=== PATIENT | female | born 1955 | race African-American/Black ===

== ENCOUNTER → 2018-05-25 | Outpatient (CLI) | payer OTHER | END | disposition home or self-care (01) | LOC: KCIC 11:12 | DX: M47.896 Other spondylosis, lumbar region (principal) | CPT/HCPCS: 72100 ==

== ENCOUNTER → 2018-06-10 | Outpatient (CLI) | payer OTHER ==
[2018-06-10 12:01] LABS: ADD MAN DIFF? NO; BASO # 0.1 x10^3/uL (0.0-0.2); BASO % 0 % (0-3); EOS # 0.1 x10^3/uL (0.0-0.7); EOS % 1 % (0-3); HEMATOCRIT 37.4 % (36.0-47.0); HEMOGLOBIN 12.6 g/dL (12.0-15.5); LYMPH # 3.9 x10^3/uL (1.0-4.8); LYMPH % 30 % (24-48); MEAN CORPUSCULAR HEMOGLOBIN 33 pg (25-35); MEAN CORPUSCULAR HGB CONC 34 g/dL (31-37); MEAN CORPUSCULAR VOLUME 99 fL (79-100); MONO # 0.8 x10^3/uL (0.0-1.1); MONO % 6 % (0-9); NEUT % 62 % (31-73); PLATELET COUNT 305 x10^3/uL (140-400); RED BLOOD COUNT 3.78 x10^6/uL (3.50-5.40); RED CELL DISTRIBUTION WIDTH 15.5 % (11.5-14.5); WHITE BLOOD COUNT 12.8 x10^3/uL (4.0-11.0)
[2018-06-10 12:22] LABS: ALBUMIN 3.8 g/dL (3.4-5.0); ALBUMIN/GLOBULIN RATIO 1.1 (1.0-1.7); ALK PHOS 66 U/L (46-116); ALT (SGPT) 27 U/L (14-59); ANION GAP 11 (6-14); AST (SGOT) 16 U/L (15-37); BLOOD UREA NITROGEN 16 mg/dL (7-20); BUN/CREATININE RATIO 16 (6-20); CALCIUM 9.8 mg/dL (8.5-10.1); CARBON DIOXIDE 24 mmol/L (21-32); CHLORIDE 108 mmol/L (98-107); GFR 67.5; GLUCOSE 108 mg/dL (70-99); POTASSIUM 3.9 mmol/L (3.5-5.1); SODIUM 143 mmol/L (136-145); TOTAL BILIRUBIN 0.3 mg/dL (0.2-1.0); TOTAL PROTEIN 7.2 g/dL (6.4-8.2)
[2018-06-10 20:18] LABS: MRSA BY PCR Negative (Negative)
[2018-06-11 00:12] LABS: HEMOGLOBIN A1C 5.3 % (4.8-5.6)
== END | disposition home or self-care (01) ==
LOC: SURGPAT 10:48
DX: Z01.818 Encounter for other preprocedural examination (principal); M48.062 Spinal stenosis, lumbar region with neurogenic claudication; M54.16 Radiculopathy, lumbar region
CPT/HCPCS: 36415; 80053; 83036; 85025; 87641

== ENCOUNTER 2018-06-18 07:00 | Observation (INO) | payer OTHER ==
[~2018-06-18 07:00] MED LIST: LIDOCAINE 1% PF 2 ML VIAL. ID; ONDANSETRON PF 4 MG/2 ML VIAL. IV; PROCHLORPERAZINE 10 MG/2 ML VIAL. IV; fentaNYL PF VIAL 100 MCG/2 ML VIAL IV
[2018-06-18] MEDS: IV RINGERS,LACTATED 1000ML 1,000 ML IV (07:00)
[2018-06-18 07:32] LABS: POC GLUCOSE 124 mg/dL (70-99)
[2018-06-18] MEDS ORDERED: fentaNYL PF VIAL 100 MCG/2 ML VIAL ×2 (08:12→11:36)
[2018-06-18] MEDS ORDERED: ROCURONIUM 50 MG/5 ML VIAL. (08:13)
[2018-06-18] MEDS ORDERED: REMIFENTANIL 1 MG VIAL. IV (08:13)
[2018-06-18] MEDS ORDERED: SEVOFLURANE 61 TO 120 MINUTES. IH (08:14)
[2018-06-18] MEDS ORDERED: DEXAMETHASONE SOD PHOS 20 MG/5 ML VIAL. (08:14)
[2018-06-18] MEDS ORDERED: PROPOFOL 20 ML IV (08:14)
[2018-06-18] MEDS ORDERED: ONDANSETRON PF 4 MG/2 ML VIAL. (08:15)
[2018-06-18] MEDS ORDERED: PROPOFOL 50 ML IV ×2 (08:15→09:52)
[2018-06-18] MEDS ORDERED: KETOROLAC 30 MG/ML INJ FOR OR. INJ (08:15)
[2018-06-18] MEDS ORDERED: PHENYLEPHRINE 10 MG/ML VIAL. ×2 (08:15)
[2018-06-18] MEDS: BUPIVAC MPF-EPI 0.5%-1:200000 30 ML VIAL. INJ (09:39)
[2018-06-18] MEDS: KETOROLAC 60 MG/2 ML INJ FOR OR. (09:39)
[2018-06-18] MEDS: GELATIN SPONGE SIZE 100. (09:39)
[2018-06-18] MEDS: THROMBIN TOPICAL 20,000 UNIT SPRAY.SYRN KIT TP (09:39)
[2018-06-18] MEDS ORDERED: NEOSTIGMINE METHYLSULFATE 5 MG/5 ML SYRINGE. (11:05)
[2018-06-18] MEDS ORDERED: GLYCOPYRROLATE 1 MG/5 ML VIAL. (11:06)
[2018-06-18] MEDS ORDERED: diphenhydrAMINE HCL 25 MG CAPSULE PO (11:45)
[2018-06-18] MEDS ORDERED: NON FORMULARY ITEM (Albuterol Sulfate (Proair Hfa Inhaler) 2 PUFF) INH (11:45)
[2018-06-18] MEDS ORDERED: diphenhydrAMINE 50 MG/ML VIAL IV (11:45)
[2018-06-18] MEDS ORDERED: 0.9 % SODIUM CHLORIDE 10 ML DISP.SYRIN. IV (11:45)
[2018-06-18] MEDS ORDERED: MAGNESIUM HYDROXIDE 2,400 MG/30 ML ORAL.SUSP. PO (11:45)
[2018-06-18] MEDS ORDERED: MAG HYDROX/ALUMINUM HYD/SIMETH 30 ML ORAL.SUSP PO (11:45)
[2018-06-18] MEDS ORDERED: HYDROcodone/APAP 5/325MG 1 TAB TABLET PO (11:45)
[2018-06-18] MEDS ORDERED: fentaNYL PF VIAL 100 MCG/2 ML VIAL IV (11:45)
[2018-06-18] MEDS ORDERED: ACETAMINOPHEN 325 MG TABLET. PO (11:45)
[2018-06-18] MEDS ORDERED: CALCIUM CARBONATE 500 MG TAB.CHEW PO (11:45)
[2018-06-18] MEDS ORDERED: MORPHINE SULFATE 2 MG/ML DISP.SYRIN. (11:50)
[2018-06-18] MEDS: fentaNYL PF VIAL 100 MCG/2 ML VIAL IV ×5 (11:55→13:27)
[2018-06-18] MEDS: MORPHINE SULFATE 2 MG/ML DISP.SYRIN. IV ×2 (11:56→12:10)
[2018-06-18 12:19] LABS: POC GLUCOSE 157 mg/dL (70-99)
[2018-06-18] MEDS ORDERED: IBUPROFEN 800 MG TABLET. PO (12:45)
[2018-06-18] MEDS ORDERED: ALBUTEROL SULFATE 2.5 MG/3 ML NEBU. NEB (13:00)
[2018-06-18] MEDS: buPROPion XL 150 MG TAB.ER.24H. PO (13:00)
[2018-06-18] MEDS ORDERED: ZOLPIDEM 5 MG TABLET. PO (13:15)
[2018-06-18] MEDS: POTASSIUM CL 20MEQ D5-0.45NACL 1,000 ML IV (13:24)
[2018-06-18] MEDS: CYCLOBENZAPRINE 10 MG TABLET. PO ×2 (14:00→21:30)
[2018-06-18] MEDS: DULoxetine HCL 30 MG CAPSULE.DR PO (14:48)
[2018-06-18] MEDS: LOSARTAN POTASSIUM 50 MG TABLET. PO (14:48)
[2018-06-18 16:34] LABS: POC GLUCOSE 345 mg/dL (70-99)
[2018-06-18] MEDS: CHOLECALCIFEROL (VITAMIN D3) 1,000 UNIT TABLET PO (16:46)
[2018-06-18 20:24] LABS: POC GLUCOSE 173 mg/dL (70-99)
[2018-06-18] MEDS: DICLOFENAC SODIUM 1% TOPICAL GEL 100GM TUBE. TP (21:00)
[2018-06-18] MEDS: DOCUSATE SODIUM 100 MG CAPSULE. PO (21:30)
[2018-06-18] MEDS: ATORVASTATIN CALCIUM 40 MG TABLET. PO (21:30)
[2018-06-18] MEDS: ZOLPIDEM 5 MG TABLET. PO ×2 (21:30→23:45)
[2018-06-18] MEDS: HYDROcodone/APAP 5/325MG 1 TAB TABLET PO (22:43)
[2018-06-19 07:02] LABS: POC GLUCOSE 138 mg/dL (70-99)
[2018-06-19] MEDS: ASPIRIN ENTERIC COATED 81 MG TABLET.DR. PO (08:01)
[2018-06-19] MEDS: DULoxetine HCL 30 MG CAPSULE.DR PO (08:01)
[2018-06-19] MEDS: LOSARTAN POTASSIUM 50 MG TABLET. PO (08:01)
[2018-06-19] MEDS: MULTIVITAMIN with MINERAL TABLET. PO (08:02)
[2018-06-19] MEDS: CYCLOBENZAPRINE 10 MG TABLET. PO (08:02)
[2018-06-19] MEDS: CHOLECALCIFEROL (VITAMIN D3) 1,000 UNIT TABLET PO (08:02)
[2018-06-19] MEDS: buPROPion XL 150 MG TAB.ER.24H. PO (08:02)
[2018-06-19] MEDS: DICLOFENAC SODIUM 1% TOPICAL GEL 100GM TUBE. TP (08:03)
[2018-06-19] MEDS: HYDROcodone/APAP 5/325MG 1 TAB TABLET PO (08:10)
[2018-06-19] MEDS: DOCUSATE SODIUM 100 MG CAPSULE. PO (09:00)
== END 2018-06-19 11:30 | disposition home or self-care (01) ==
LOC: SURG 07:00 → 4 SOUTHEST 12:42
PROVIDERS: Neurological Surgery
DX: M48.062 Spinal stenosis, lumbar region with neurogenic claudication (principal); M43.16 Spondylolisthesis, lumbar region; E11.9 Type 2 diabetes mellitus without complications; M54.16 Radiculopathy, lumbar region; Z82.49 Family history of ischemic heart disease and other diseases of the circulatory system; Z85.42 Personal history of malignant neoplasm of other parts of uterus; Z87.891 Personal history of nicotine dependence
CPT/HCPCS: 63047; 76000; 82962; 88304; 88311; 96374; 97161-GP; A7015; G0378; G0379; J0690; J1100; J1885; J2270; J2405; J2704; J2710; J3010; J3490

== ENCOUNTER → 2018-10-04 | Outpatient (CLI) | payer MEDICARE, OTHER ==
[2018-06-19 10:48] VITALS: BP 160/60
[~2018-10-04] MED LIST changes: +ASPI81TA50 PO; +ATOR40TA59 PO; +BUPR150T6 PO; +CHOL100013 PO; +CYCL5TAB PO; +DICL100G18 TP; +DULO60CA6 PO; +GADOBUTROL 7.5 MMOL/7.5 ML VIAL IV ONE; +HYDR-3164 PO; +IBUP-1060 PO; -LIDOCAINE 1% PF 2 ML VIAL. ID; +METF10007 PO; +MULT1TAB52 PO; -ONDANSETRON PF 4 MG/2 ML VIAL. IV; +PROAIR HFA8.5 GM INH; -PROCHLORPERAZINE 10 MG/2 ML VIAL. IV; +VALS320T2 PO; +ZOLP12.52 PO; -fentaNYL PF VIAL 100 MCG/2 ML VIAL IV
--- NOTE | 2018-10-04 11:31 | KCIC ---
Single lateral view of the lumbar spine Clinical indications: Lumbar stenosis. Lumbar pain and radiculopathy. COMPARISON: May 25, 2018. FINDINGS: Again seen is a grade 1 anterolisthesis of L4-5 and L5-S1 which has not changed significantly. No compression fracture or discitis or osteolytic process is evident. Mild degenerative endplate spurring is seen. IMPRESSION: Stable grade 1 anterolisthesis of L4-5 and L5-S1. Electronically signed by: Zander Honeycutt MD (10/04/2018 11:27 AM) [place] [id number]
--- NOTE | 2018-10-04 12:40 | KCIC ---
MRI Lumbar Spine without and with contrast History: Low back pain, stenosis, previous surgery and June 2018, bilateral radiculopathy right greater than left Technique: Multiplanar, multi sequential pre and postcontrast MR imaging was performed of the lumbar spine. Comparison: None Findings: There is mild motion. Lumbar vertebral body stature is maintained. There is grade 1 anterior spondylolisthesis L4-5 and L5-S1. Conus terminates at L1. There is no nodular enhancement of the conus or cauda equina. There is no enhancement in the intervertebral disc spaces. There is no significant marrow edema of the vertebral bodies, some edema associated with the L4-5 facet articulations likely reactive/degenerative in etiology. There is hemangioma of the L1 vertebral body. There is ifpu-eq-ykpuzoyw degenerative disc disease at L4-5 and minimally L5-S1, mild disc desiccation at more superior levels. L1-L2: Neural foramina and spinal canal are adequate. L2-L3: There is anterior annular tear. There is negligible posterior bulge. Neural foramina and spinal canal are adequate. There is mild facet degenerative change and buckling of the ligamentum flavum. L3-L4: There is minimal posterior bulge. Spinal canal and neural foramina are adequate. There is prominence of posterior epidural fat, mild buckling of the ligamentum flavum, and facet degenerative change. L4-L5: There are laminectomy defects bilaterally. There is facet degenerative change. There is some fluid associated with the left facet articulation. There is mild buckling of the residual ligamentum flavum. There is partial uncovering of the posterior aspect of the disc due to spondylolisthesis, minimal superimposed bulge contributing to mild to moderate narrowing of the inferior left neural foramen, minimal narrowing on the right. Spinal canal is overall adequate. L5-S1: There is moderate to severe right greater than left facet degenerative change. There is mild buckling of the ligamentum flavum. There is psaa-ef-yreonabf narrowing of the far lateral recesses from posteriorly bilaterally right greater than left. Neural foramina are adequate. Impression: 1. There is no significant lumbar spinal stenosis, wmty-vy-setsazxy narrowing of the far lateral recesses from posteriorly at L5-S1. There are laminectomy defects bilaterally at the L4-5 level. There is grade 1 anterior spondylolisthesis L4-5 and to lesser degree at L5-S1. There is multilevel facet degenerative change. There is mild to moderate degenerative disc disease at L4-5, minimally at L5-S1, and minimal disc desiccation at more superior levels. There is mfpl-ut-zflgplmd left and mild right L4-5 neural foramina compromise. Electronically signed by: Carlos Chino MD (10/04/2018 12:36 PM) [facility]-KCIC1
== END | disposition home or self-care (01) ==
LOC: KCIC MRI 09:43
PROVIDERS: ATTEND Neurological Surgery
DX: M48.061 Spinal stenosis, lumbar region without neurogenic claudication (principal); M51.16 Intervertebral disc disorders with radiculopathy, lumbar region; M51.37 Other intervertebral disc degeneration, lumbosacral region; M46.06 Spinal enthesopathy, lumbar region; M43.17 Spondylolisthesis, lumbosacral region
CPT/HCPCS: 72100; 72158; 82565; A9585

== ENCOUNTER → 2019-02-23 | Outpatient (CLI) | payer MEDICARE, OTHER ==
[2018-06-19 10:48] VITALS: BP 160/60
[~2019-02-23] MED LIST changes: +ALBU2.5V8 INH; +BENA20TA16 PO; +DOCU-109 PO; -GADOBUTROL 7.5 MMOL/7.5 ML VIAL IV ONE; +LEXAPRO20 MG PO; +OMEP20TA8 PO; +OXYC1TAB15 PO; -PROAIR HFA8.5 GM INH
[2019-02-23 13:53] LABS: BASO # 0.1 x10^3/uL (0.0-0.2); BASO % 1 % (0-3); EOS # 0.3 x10^3/uL (0.0-0.7); EOS % 2 % (0-3); HEMATOCRIT 38.5 % (36.0-47.0); HEMOGLOBIN 12.7 g/dL (12.0-15.5); LYMPH % 43 % (24-48); MEAN CORPUSCULAR HEMOGLOBIN 33 pg (25-35); MEAN CORPUSCULAR HGB CONC 33 g/dL (31-37); MEAN CORPUSCULAR VOLUME 99 fL (79-100); MONO # 0.8 x10^3/uL (0.0-1.1); MONO % 7 % (0-9); NEUT # 5.5 x10^3uL (1.8-7.7); NEUT % 47 % (31-73); PLATELET COUNT 300 x10^3/uL (140-400); RED BLOOD COUNT 3.89 x10^6/uL (3.50-5.40); RED CELL DISTRIBUTION WIDTH 14.8 % (11.5-14.5); WHITE BLOOD COUNT 11.7 x10^3/uL (4.0-11.0)
[2019-02-23 14:03] LABS: PROTHROMBIN TIME PATIENT 12.6 SEC (11.7-14.0)
[2019-02-23 14:04] LABS: ALBUMIN 3.9 g/dL (3.4-5.0); ALBUMIN/GLOBULIN RATIO 1.3 (1.0-1.7); CALCIUM 9.5 mg/dL (8.5-10.1); CREATININE 0.8 mg/dL (0.6-1.0); GFR 87.1; POTASSIUM 3.9 mmol/L (3.5-5.1); TOTAL BILIRUBIN 0.3 mg/dL (0.2-1.0)
--- NOTE | 2019-02-23 14:47 | EKG ---
[facility] [address] [place] [address] Test Date: 2019-02-23 Test Time: 14:43:56 Pat Name: MILAGROS GREEN Department: Room: Gender: F Outreach Worker: SHERWIN : 1955 Requested By: CHRISTIANE EVANS Order Number: [id number] Reading MD: Raymond Modi MD Measurements Intervals [place] Rate: 78 P: 47 GA: 192 QRS: 54 QRSD: 80 T: 62 QT: 374 QTc: 430 Interpretive Statements SINUS RHYTHM NON-SPECIFIC ST/T CHANGES Electronically Signed On 02-24-2019 11:50:58 CDT by Raymond Modi MD
== END | disposition home or self-care (01) ==
LOC: SURGPAT 13:14
PROVIDERS: ATTEND Neurological Surgery
DX: M43.16 Spondylolisthesis, lumbar region (principal); M54.16 Radiculopathy, lumbar region; Z91.040 Latex allergy status; Z88.8 Allergy status to other drugs, medicaments and biological substances
CPT/HCPCS: 36415; 80053; 85025; 85610; 85730; 87641; 93005

== ENCOUNTER 2019-02-28 08:30 | Inpatient (IN) | payer MEDICARE, OTHER ==
[~2019-02-28] VITALS: Ht 170.2 cm; Wt 57.4 kg
[~2019-02-28 08:30] MED LIST changes: -DOCU-109 PO; -OXYC1TAB15 PO
--- NOTE | 2019-03-02 15:06 | PREOP HP ---
DATE OF SERVICE: 03/03/2019 HISTORY OF PRESENT ILLNESS: The patient is a pleasant 63-year-old who underwent lumbar bilateral microdecompression surgery at L4-L5 in 06/2018. At that time, there was a grade 1 anterolisthesis, but no motion on flexion and extension films. She says she developed increasing back and right leg pain. On imaging studies, she was found to have developed motion at L4-L5 on flexion and extension views. Her current problem is right-sided low back pain and pain, which radiates to her right buttock and posterolateral thigh and leg. She also notices occasional pain on the left posterior thigh. She rates her pain as an 8/10 when it is severe. Walking increases her pain. Rest helps her. She has had epidural steroid injections in the past, which were not helpful. PAST MEDICAL HISTORY: Cancer of the colon, diabetes. PAST SURGICAL HISTORY: Colectomy 2008, endometrial cancer in 2010, lumbar microdecompression L4-L5 bilaterally in 06/2018. FAMILY HISTORY: Hypertension. SOCIAL HISTORY: Retired. . Denies substance abuse. Former smoker. Former drinker. Drinks coffee daily. ALLERGIES: TO LATEX, MYCIN, SULFA AND CYCLINE. CURRENT MEDICATIONS: [place], albuterol, aspirin, atorvastatin, bupropion, diclofenac, duloxetine, ibuprofen, metformin, multivitamin, topiramate, valsartan, vitamin D and zolpidem tartrate. REVIEW OF SYSTEMS: A 12-point review of systems was obtained and is noncontributory except for that mentioned above. PHYSICAL EXAMINATION: NEUROSURGERY EXAMINATION: GENERAL APPEARANCE: Alert, pleasant, in no acute distress. HEAD: Normocephalic and atraumatic. SKIN: Warm and dry. Well-healed lumbar incision. MUSCULOSKELETAL: Lumbar paraspinal muscle bulk is normal, restricted range of motion of the lumbar spine, lamc-hl-yjstxoag tenderness of the lower lumbar spine with palpation, normal range of motion of the lower extremities bilaterally. EXTREMITIES: No clubbing, cyanosis or edema. NEUROLOGIC: Alert and oriented x 3, normal recent and remote memory, strength 5/5 in bilateral lower extremities, sensory was intact to light touch in the lower extremities bilaterally, reflexes were present and symmetric in bilateral lower extremities, positive straight leg raising on the right with buttock, posterior thigh pain relieved by Lasegue's maneuver, negative straight leg raising on the left, normal gait. ASSESSMENT/PLAN: There is a significant grade 1 anterolisthesis at L4-L5 with motion. This results in her bilateral radicular symptoms, right greater than left. My recommendation is for her to undergo an instrumented lumbar fusion at L4-L5 combined with an anterior discectomy from the lateral oblique approach. We spoke about the surgery including the technique, risk and expected postop course. She understands and would like to proceed. We will make the arrangements. CHRISTIANE EVANS MD DR: NANY/farooq JOB#: [id number] / [id number] KANDICE
[2019-03-03] VITALS (9 sets, daily range): BP systolic 96–137; BP diastolic 41–85
[2019-03-03] MEDS ORDERED: KETOROLAC 60 MG/2 ML INJ FOR OR. ONE (05:46)
[2019-03-03] MEDS ORDERED: GELATIN SPONGE SIZE 100. ONE (05:46)
[2019-03-03] MEDS ORDERED: BUPIVAC MPF-EPI 0.5%-1:200000 30 ML VIAL. ONE (05:46)
[2019-03-03] MEDS ORDERED: THROMBIN TOPICAL 20,000 UNIT SPRAY.SYRN KIT TP ONE (05:47)
[2019-03-03] MEDS ORDERED: HYDROmorphone 2 MG/ML VIAL IV PRN (07:00)
[2019-03-03] MEDS ORDERED: PROCHLORPERAZINE 10 MG/2 ML VIAL. IV PRN (07:00)
[2019-03-03] MEDS ORDERED: MORPHINE SULFATE 2 MG/ML VIAL. IV PRN (07:00)
[2019-03-03] MEDS ORDERED: IV RINGERS,LACTATED 1000ML 1,000 ML IV SCH (07:00)
[2019-03-03] MEDS ORDERED: fentaNYL PF VIAL 100 MCG/2 ML VIAL IV PRN (07:00)
[2019-03-03] MEDS ORDERED: LIDOCAINE 1% PF 2 ML VIAL. ID PRN (07:00)
[2019-03-03] MEDS ORDERED: PROPOFOL 100 ML IV ONE (07:01)
[2019-03-03] MEDS ORDERED: PHENYLEPHRINE in 0.9% NACL PF 1 MG/10 ML SYRINGE. IV ONE (07:53)
[2019-03-03] MEDS ORDERED: ONDANSETRON PF 4 MG/2 ML VIAL. ONE ×2 (07:53→08:51)
[2019-03-03] MEDS ORDERED: PROPOFOL 20 ML IV ONE (07:53)
[2019-03-03] MEDS ORDERED: FAMOTIDINE 20 MG/2 ML VIAL ONE (07:53)
[2019-03-03] MEDS ORDERED: LIDOCAINE 2% PF 5 ML VIAL. ONE (07:53)
[2019-03-03] MEDS ORDERED: DEXAMETHASONE SOD PHOS 20 MG/5 ML VIAL. ONE (07:53)
[2019-03-03] MEDS ORDERED: REMIFENTANIL 2 MG VIAL. IV ONE (07:54)
[2019-03-03] MEDS ORDERED: MIDAZOLAM HCL/PF 2 MG/2 ML VIAL. ONE (07:54)
[2019-03-03] MEDS ORDERED: fentaNYL PF VIAL 100 MCG/2 ML VIAL ONE ×2 (07:54→13:00)
[2019-03-03] MEDS ORDERED: ROCURONIUM 50 MG/5 ML VIAL. ONE (07:56)
--- NOTE | 2019-03-03 08:38 | RAD ---
CT of the lumbar spine without contrast, 03/03/2019: HISTORY: Lumbar stenosis, BrainLab study Noncontrast scans were obtained with multiplanar reconstructions were used. The data was transferred to the operating room to aid in the patient's stereotactically guided surgery. The following findings are delineated: 1. There is a mild anterolisthesis at L4-5. There is extensive facet joint arthropathy on the left at this level. Partial laminectomy defects are present at this level. There appears to be spondylolysis on the right at L4. There is moderate broad-based posterior disc bulging at L4-5 the combination of findings is causing moderate central spinal stenosis and bilateral foraminal encroachment at this level. 2. No significant posterior disc bulge or protrusion is present at L1-2 and L2-3. The central spinal canal and neural foramina are well-maintained. 3. At L3-4 there is mild posterior disc bulging. There is mild posterior ligamentous thickening. The thecal sac measures 9 to 10 mm in AP diameter at the midline. The neural foramina are well-maintained. 4. At L5-S1 there are moderate degenerative changes involving the facet joints with posterior ligamentous thickening. There is mild posterior disc bulging. The combination of findings is causing mild central spinal stenosis and mild bilateral foraminal narrowing. 5. Extensive aortoiliac calcific plaquing is noted. PQRS Compliance Statement: One or more of the following individualized dose reduction techniques were utilized for this examination: 1. Automated exposure control 2. Adjustment of the mA and/or kV according to patient size 3. Use of iterative reconstruction technique Electronically signed by: Boni Arroyo MD (03/03/2019 8:35 AM) [facility]
[2019-03-03] MEDS ORDERED: HYDROmorphone 2 MG/ML VIAL ONE (08:52)
[2019-03-03] MEDS ORDERED: ceFAZolin SODIUM 1 GM VIAL ONE (09:13)
[2019-03-03] MEDS ORDERED: 0.9 % SODIUM CHLORIDE 20 ML VIAL. IJ ONE ×2 (09:14→12:27)
[2019-03-03] MEDS ORDERED: GLYCOPYRROLATE 1 MG/5 ML VIAL. ONE (09:15)
[2019-03-03] MEDS ORDERED: PHENYLEPHRINE 10 MG/ML VIAL. ONE (09:25)
[2019-03-03] MEDS ORDERED: ceFAZolin 2GM PREMIX 2 GM/50 ML BAG IV ONE (10:00)
[2019-03-03] MEDS ORDERED: NALOXONE 0.4 MG/ML VIAL. IV PRN (12:15)
[2019-03-03] MEDS ORDERED: ALBUTEROL SULFATE 2.5 MG/3 ML NEBU. INH PRN (12:15)
[2019-03-03] MEDS ORDERED: MAG HYDROX/ALUMINUM HYD/SIMETH 30 ML ORAL.SUSP PO PRN (12:15)
[2019-03-03] MEDS ORDERED: CALCIUM CARBONATE 500 MG TAB.CHEW PO PRN (12:15)
[2019-03-03] MEDS ORDERED: ONDANSETRON PF 4 MG/2 ML VIAL. IV PRN (12:15)
[2019-03-03] MEDS ORDERED: oxyCODONE/APAP 5/325 1 TAB TABLET PO PRN (12:15)
[2019-03-03] MEDS ORDERED: ACETAMINOPHEN 325 MG TABLET. PO PRN (12:15)
[2019-03-03] MEDS ORDERED: diphenhydrAMINE HCL 25 MG CAPSULE PO PRN (12:15)
[2019-03-03] MEDS ORDERED: 0.9 % SODIUM CHLORIDE 10 ML DISP.SYRIN. IV PRN (12:15)
[2019-03-03] MEDS ORDERED: DEXTROSE 50% 25 GM / 50ML DISP.SYRIN. IV PRN (12:15)
[2019-03-03] MEDS ORDERED: MAGNESIUM HYDROXIDE 2,400 MG/30 ML ORAL.SUSP. PO PRN (12:15)
[2019-03-03] MEDS ORDERED: DESFLURANE > 120 MINUTES IH ONE (12:25)
[2019-03-03] MEDS ORDERED: NEOSTIGMINE METHYLSULFATE 5 MG/5 ML SYRINGE. ONE (12:33)
[2019-03-03] MEDS: fentaNYL PF VIAL 100 MCG/2 ML VIAL IV PRN ×4 (13:06→18:03)
[2019-03-03] MEDS ORDERED: ZOLPIDEM 5 MG TABLET. PO PRN (13:30)
[2019-03-03] MEDS: MULTIVITAMIN with MINERAL TABLET. PO SCH (14:00)
[2019-03-03] MEDS: CITALOPRAM 20 MG TABLET. PO SCH (14:00)
[2019-03-03] MEDS: LISINOPRIL 20 MG TABLET PO SCH (14:00)
[2019-03-03] MEDS: CHOLECALCIFEROL (VITAMIN D3) 1,000 UNIT TABLET PO SCH (14:00)
--- NOTE | 2019-03-03 14:12 | NUR ---
Arrived to unit by bed from PACU. Awakes easily but restless. Resting on left side with pillow between knees. ROCCO's and ALBERT's on bilaterally. IVF's intact and infusing. O2 at 4 l per n/c. Dressings x's 3 on lower back d/i. New ice pack applied. Moves all extremities. Side rails up x's 2 with call light in reach. Spouse at bedside. Cont. monitor.
--- NOTE | 2019-03-03 14:15 | OP ---
DATE OF SURGERY: 03/03/2019 PREOPERATIVE DIAGNOSES: Spondylolisthesis L4-L5 with instability. POSTOPERATIVE DIAGNOSIS: Spondylolisthesis L4-L5 with instability. OPERATION PERFORMED: Posterior instrumentation, L4-L5, posterolateral fusion, L4-L5 with allograft bone, anterior discectomy, L4-L5; anterior interbody fusion with autograft bone, L4-L5. The operation was done with stimulated EMG monitoring, fluoroscopy, microscopic dissection, and BrainLAB guidance. SURGEON: Harpreet Evans M.D. COMMUNITY RELATIONS ADVISOR: Swathi Adames APRN OPERATIVE INDICATIONS: The patient is a very pleasant 63-year-old who underwent lumbar microsurgery and developed problems related to instability. She did have a spondylolisthesis prior to her initial surgery and underwent decompression, but there was no motion on flexion and extension views and although, we discussed the possibility of an instrumented fusion. It was felt that there was less likely than not that she would develop difficulties. She did, however, developed problems with motion and recurrent back and bilateral leg pain and on imaging studies increasing spondylolisthesis, and evidence of motion especially when comparing supine MRI scanning with standing flexion and extension views. I recommended a posterior instrumentation with an anterior discectomy and fusion and she understood the surgery and risks and wished to go ahead. DESCRIPTION OF PROCEDURE: Following general endotracheal anesthesia, the patient was positioned prone on the Justin table. Lumbar region prepped and draped in standard fashion. ROCCO hose and AV impulse boots were applied for DVT prophylaxis. The microscope was draped. Fluoroscopy was draped and brought into the field. Monitoring was established. Ancef 1 gram was given less than 1 hour prior to initiation of surgery. Using fluoroscopic guidance, an incision was made incorporating her previous incision in the lower midline and extending above and below the L4-L5 vertebral bodies a short distance. I reflected the paraspinal muscles first to the left side and placed a [place] microdisk retractor. I exposed the lamina, the facets and transverse processes and using the BrainLAB guidance, I drilled in the posterior aspect of the pedicle of L4 and L5. I passed a black ball followed by ball tip probe, followed by tap and both of those reasons, I did use stimulated EMG monitoring throughout. I covered those openings with bone wax, and then I excoriated the transverse processes and the lateral facets at L4 and L5 on the left. I did aspirate 20 mL of bone marrow from the left iliac crest and then I placed allograft bone packed into the left lateral gutter. I then placed Innovasis screws, two 6.5 x 40 screws and then placed a 45 mm edson and nuts, which were placed, but not tightened. I then went to the right side and in a similar fashion, I exposed the lamina, the pedicles and the transverse processes. I did cannulate the pedicles of L4 and L5 without difficulty again using stimulated EMG monitoring and BrainLAB guidance and then I excoriated the transverse processes and lateral facets and packed allograft bone in the right gutter. I then used Innovasis screws at L5, I used a 6.5 x 40 screw and at L4, I used a 6.5 x 45 screw. These were placed. A 45 mm edson was placed. I then tilted the table and made an incision in the right flank and using the BrainLAB system, I directed the probe down to dock at the lateral aspect of the pedicle of L5 and then worked superiorly to the disc space. I stimulated electrically and assured myself that the root was not in direct continuity. I then passed a K-wire followed by a dilator, followed by working channel and performed a discectomy through the working channel of the L4-L5 disc. I scraped cartilaginous endplate. I used pituitaries as well as endplate scrapers and I felt an excellent discectomy. I then placed a shield to protect the far lateral root and then passed first a trial and then followed by an interbody fusion cage of 9 x 9 x 28, which was packed with allograft bone. This was gently tapped into position and then released. I irrigated copiously after releasing and removing the application hardware and then I compressed slightly at L4-L5 on the right and torqued the screws sequentially followed by sequential torquing of the screws on the left side. After this accomplished, then I irrigated further, assured myself of excellent hemostasis. I closed the wound with absorbable sutures. The skin was closed with 4-0 subcuticular stitch. The operation went very well. I was quite pleased with the surgery. HARPREET EVANS MD DR: NANY/farooq JOB#: [id number] / [id number] MTDD
--- NOTE | 2019-03-03 14:50 | NUR ---
Restless turning side to side. Reposition. States pain is at "10" on pain scale. Fentanyl IV given. Cont. monitor.
--- NOTE | 2019-03-03 15:15 | NUR ---
Resting quietly with eyes closed. Spouse at bedside. Cont. monitor.
[2019-03-03] MEDS: oxyCODONE/APAP 5/325 1 TAB TABLET PO PRN ×2 (16:36→23:42)
[2019-03-03] MEDS: CYCLOBENZAPRINE 10 MG TABLET. PO SCH ×2 (16:37→21:10)
[2019-03-03] MEDS: ceFAZolin SODIUM 1 GM in IV DEXTROSE 5% 50 ML IV SCH (17:54)
[2019-03-03] MEDS: PANTOPRAZOLE 40 MG TABLET.DR. PO SCH (17:54)
[2019-03-03] MEDS: ASPIRIN ENTERIC COATED 81 MG TABLET.DR. PO SCH (17:54)
--- NOTE | 2019-03-03 18:20 | NUR ---
Up in chair moving side to side. Restless. States pain is at 10 on pain scale. Noted dressing saturated on midline incision. Reinforced dressing with ABD dressing and hypofix tape. States Percocet tablets didn't alleviate the pain. Notified Merline FLOYD and received orders. Assisted pt back to bed, propter with pillows. Fentanyl IV given. Now is resting quietly. Cont. monitor.
[2019-03-03] MEDS ORDERED: DEXAMETHASONE SOD PHOS 4 MG/ML VIAL IV ONE (19:30)
[2019-03-03] MEDS ORDERED: DEXAMETHASONE SOD PHOS 20 MG/5 ML VIAL. IV ONE (19:30)
[2019-03-03] MEDS ORDERED: ATORVASTATIN CALCIUM 40 MG TABLET. PO SCH (21:00)
[2019-03-03] MEDS ORDERED: ZOLPIDEM 5 MG TABLET. PO SCH (21:00)
[2019-03-03] MEDS: DOCUSATE SODIUM 100 MG CAPSULE. PO SCH (21:10)
[2019-03-03] MEDS: POTASSIUM CL 20MEQ-0.45% NACL 1,000 ML IV SCH (23:41)
[2019-03-03] MEDS: DEXAMETHASONE SOD PHOS 4 MG/ML VIAL IV SCH (23:42)
[2019-03-04] MEDS: POTASSIUM CL 20MEQ-0.45% NACL 1,000 ML IV SCH (01:32)
[2019-03-04] MEDS: ceFAZolin SODIUM 1 GM in IV DEXTROSE 5% 50 ML IV SCH ×2 (01:42→07:56)
[2019-03-04 03:00] VITALS: BP 117/53
--- NOTE | 2019-03-04 03:33 | NUR ---
Patient has not voided except a few dribbles in specimen hat. Patient has been up to chair drinking coffee stating "If I drink coffee, I will go." Bladder scanned patient and got results from 500cc-800 cc. Patient stated "I feel like I'm going to go." Patient requested "A little more time to go, this coffee will make me go." Informed patient that she could try one more time within the hour and if unable to void, RN would straight Cath her. Patient verbalized understanding.
--- NOTE | 2019-03-04 05:29 | NUR ---
Patient voided 600 cc clear yellow urine.
[2019-03-04] MEDS: PANTOPRAZOLE 40 MG TABLET.DR. PO SCH (06:10)
[2019-03-04] MEDS: DEXAMETHASONE SOD PHOS 4 MG/ML VIAL IV SCH ×2 (06:10→12:32)
[2019-03-04] MEDS: oxyCODONE/APAP 5/325 1 TAB TABLET PO PRN (06:11)
[2019-03-04 07:00] VITALS: BP 134/54
--- NOTE | 2019-03-04 07:22 | NUR ---
Message left on [employer] at [phone] regarding LSO brace. Fax busy at [phone]. Report to day RN to repeat fax until it goes through.
[2019-03-04] MEDS: ASPIRIN ENTERIC COATED 81 MG TABLET.DR. PO SCH (07:58)
[2019-03-04] MEDS: CITALOPRAM 20 MG TABLET. PO SCH (07:58)
[2019-03-04] MEDS: CYCLOBENZAPRINE 10 MG TABLET. PO SCH (07:58)
[2019-03-04] MEDS: MULTIVITAMIN with MINERAL TABLET. PO SCH (07:58)
[2019-03-04] MEDS: CHOLECALCIFEROL (VITAMIN D3) 1,000 UNIT TABLET PO SCH (07:58)
[2019-03-04] MEDS: DOCUSATE SODIUM 100 MG CAPSULE. PO SCH (07:58)
[2019-03-04] MEDS: LISINOPRIL 20 MG TABLET PO SCH (08:01)
[2019-03-04 11:00] VITALS: BP 132/58
[2019-03-04] MEDS ORDERED: DOCU-109 PO (12:02)
[2019-03-04] MEDS ORDERED: OXYC1TAB15 PO (12:02)
--- NOTE | 2019-03-04 12:03 | DISCH ---
DISCHARGE INSTRUCTIONS Condition on Discharge Condition on Discharge: Stable Activity After Discharge Activity Instructions for Disc: Activity as tolerated, Avoid exertion, Walk in house Bathing Instructions: Shower-keep dressing dry, No Tub Bath until see Lifting Instructions after Dis: No heavy lifting, No pulling or pushing, Do not lift >10 pounds Exercise Instruction after Dis: Progress as tolerated Driving Instructions after Dis: No driving for 2 weeks Weight Bearing Status after Di: No restrictions Diet after Discharge Diet after Discharge: No Added Sugar Additional Diet Restrictions: resume home diet Diet Texture: Regular Swallowing Supervision: None needed Wound Incision Care Wound/Incision Care: Ice to area for comfort, Keep wound/cast CDI, Keep wound elevated Other wound/incision instructi: may remove dressing in 48 hrs if dry then may shower, no soaking Contacting the after DC Call your doctor for: Concerns you may have Follow-Up Follow up with: Dr. Evans's nurse in 2 weeks [phone] CHRISTIANE EVANS MD Mar 04, 2019 12:03
--- NOTE | 2019-03-04 13:19 | NUR ---
Patient received her LSO brace this morning from [facility]. Discharge education completed by this nurse, Dr Vinson, [employer], OT, and PT. No concerns noted upon discharge. Both IVs were D/C'd by this nurse without complications. Surgical dressing changed. Incision has a small amount of bloody drainage present. Incision was cleansed and a dry dressing was applied. Extra dressing were also given to patient prior to D/C per Dr Vinson. Patient left around 1320 with all of her belongings with her significant other. No concerns noted upon discharge.
--- NOTE | 2019-03-07 12:13 | DS ---
DATE OF DISCHARGE: 03/04/2019 DATE OF SURGERY: 03/03/2019. DISCHARGE DIAGNOSIS: Spondylolisthesis L4-L5 with instability. OPERATION PERFORMED: Posterior instrumentation L4-L5, posterolateral fusion L4-L5, anterior discectomy L4-L5 with anterior interbody fusion L4-L5. HISTORY OF PRESENT ILLNESS: The patient is a pleasant 63-year-old who underwent lumbar microsurgery and did well. She then developed problems related to instability. She had a spondylolisthesis prior to her initial surgery and underwent decompression, but there was no motion on flexion and extension views. It was felt that she would not develop further difficulties. She did, however, develop problems with motion and recurrent back pain and bilateral leg pain and on imaging studies had an increasing spondylolisthesis with evidence of motion. I recommended posterior instrumentation with anterior diskectomy and fusion. She understood the surgery and wished to proceed. HOSPITAL COURSE: She was admitted to the floor postoperatively where she did well. She was up ambulating in the room and in the halls. Physical therapy was initiated and instruction was given to her regarding her activities. Her pain is well controlled and she is in good condition to discharge home. DISCHARGE MEDICATIONS: She will resume her medications per the MRAD. DISCHARGE INSTRUCTIONS: She was instructed regarding incision care, activity restrictions and expectations for the next several weeks. She will follow up in our office in 2 weeks. She understands to call with any questions or concerns. CHRISTIANE EVANS MD DR: WILLIE/farooq JOB#: [id number] / [id number] [facility] HOSPITALSuad
--- NOTE | 2019-03-07 15:06 | PATHOLOGY ---
[facility] Accession Number: [id number] . 01 Material submitted: . vertebral column - LUMBAR DECOMPRESSION AND DISC . 01 Clinical history: . Spondylolisthesis, lumbar radiculopathy . 02 Diagnosis: "Lumbar decompression and disc", removal: - Portions of fibrocartilage with focal degenerative changes. - Scant portion of unremarkable bone. (SKM:lesa; 03/07/2019) MBR/03/07/2019 . 02 Electronically signed: . Дмитрий Baldwin MD, Pathologist NPI- [id number] . 01 Gross description: . Received in formalin labeled "Marsha Payton, lumbar decompression and disc," are several pieces of glistening, fibrous tissue measuring 3.6 x 2.1 x 0.8 cm in aggregate dimensions, containing small fragments of possible bone. The tissue is submitted representatively in cassette A1, following decalcification. (TSD; 03/03/2019) TOB/TOB . 02 Pathologist provided ICD-10: M51.36 . 02 CPT . 145211, [id number] Specimen Comment: A courtesy copy of this report has been sent to Specimen Comment: [phone], . Specimen Comment: Report sent to / DR DRAPER Performed at: 01 [facility] [address], [place] [id number] MD Priyank Garcia MD Phone: [phone] Performed at: 02 [facility] [address], [place] [id number] MD Danial Corado MD Phone: [phone]
== END 2019-03-04 13:20 | disposition home or self-care (01) | DRG 455 ==
LOC: OPSVCIP 03-03 05:45 → 4 NORTH 03-03 14:20
PROVIDERS: ADMIT Neurological Surgery; ATTEND Neurological Surgery
PROC: 0SG00A0 Fusion of Lumbar Vertebral Joint with Interbody Fusion Device, Anterior Approach, Anterior Column, Open Approach (ICD-10-PCS; 2019-03-03)
PROC: 0SB20ZZ Excision of Lumbar Vertebral Disc, Open Approach (ICD-10-PCS; 2019-03-03)
PROC: 07DR3ZZ Extraction of Iliac Bone Marrow, Percutaneous Approach (ICD-10-PCS; 2019-03-03)
PROC: 4A11X4G Monitoring of Peripheral Nervous Electrical Activity, Intraoperative, External Approach (ICD-10-PCS; 2019-03-03)
PROC: 0SG0071 Fusion of Lumbar Vertebral Joint with Autologous Tissue Substitute, Posterior Approach, Posterior Column, Open Approach (ICD-10-PCS; principal; 2019-03-03 08:30)
DX: M43.16 Spondylolisthesis, lumbar region (principal); M54.16 Radiculopathy, lumbar region; E11.9 Type 2 diabetes mellitus without complications; M53.2X6 Spinal instabilities, lumbar region; Z85.038 Personal history of other malignant neoplasm of large intestine; Z85.42 Personal history of malignant neoplasm of other parts of uterus; Z87.891 Personal history of nicotine dependence; Z82.49 Family history of ischemic heart disease and other diseases of the circulatory system; Z90.49 Acquired absence of other specified parts of digestive tract; Z91.040 Latex allergy status; Z88.2 Allergy status to sulfonamides; Z88.8 Allergy status to other drugs, medicaments and biological substances; Z91.048 Other nonmedicinal substance allergy status; Z79.899 Other long term (current) drug therapy
CPT/HCPCS: 36415; 72131; 76000; 82962; 86850; 86900; 86901; 88304; 88311; A4314; A7015; C1713; C1893; J0690; J0696; J1100; J1170; J1885; J2001; J2250; J2370; J2405; J2704; J2710; J3010; J3490; J7120; 97116; 97530

== ENCOUNTER → 2019-05-25 | Outpatient (CLI) | payer MEDICARE, OTHER ==
[~2019-05-25] MED LIST changes: +DOCU-109 PO; +OXYC1TAB15 PO
--- NOTE | 2019-05-25 17:00 | RAD ---
Examination: LUMBAR SPINE 2-3V History: Status post lumbar fusion Comparison/Correlation: 03/03/2019 CT exam of the lumbar spine Findings: Frontal and lateral images of the lumbar spine were obtained. Pedicle screws and associated rods at the L4-5 level noted. Lucency at the L4 level which appears represent appendectomy noted. Intervertebral disc spacer material at L4 S5 is evident. Surgical clips are present anterior to the spine. Suture material noted involving the midline of the lower abdomen. Pelvic surgical clips noted bilaterally. Alignment is unremarkable. Vertebral body heights are adequate. Impression: Postoperative findings. No acute suspicious process. Alignment is within normal limits. Electronically signed by: Guero Gonzalez MD (05/25/2019 4:57 PM) [facility]
== END | disposition home or self-care (01) ==
LOC: RAD 09:33
PROVIDERS: ATTEND Neurological Surgery
DX: Z09 Encounter for follow-up examination after completed treatment for conditions other than malignant neoplasm (principal); Z98.1 Arthrodesis status
CPT/HCPCS: 72100